=== PATIENT | female | born 1980 ===

== ENCOUNTER 2016-07-16 20:15 | Emergency (ER) | payer SELFPAY ==
[2016-07-16 20:41] VITALS: BP 139/65; PULSE 77; RESP 16; TEMP 98.6; O2SAT 99
--- NOTE | 2016-07-16 21:57 | ED PDOC ---
HPI: CCC, URI, Sore Throat Time Seen by Provider: 07/16/16 21:55 Chief Complaint (Nursing): ENT Problem Chief Complaint (Provider): sore thoart History Per: Patient History/Exam Limitations: no limitations Onset/Duration Of Symptoms: Days (3) Current Symptoms Are (Timing): Still Present Location Of Pain: Throat Associated Symptoms: Fever, Chills, Sore Throat, Sputum. denies: Cough, Neck Pain, Sinus Drainage, Myalgias, Nasal Congestion, Nausea, Vomiting, Diarrhea Past Medical History Reviewed: Historical Data, Nursing Documentation, Vital Signs Vital Signs: Last Vital Signs Temp 98.6 F 07/16/16 20:39 Pulse 77 07/16/16 20:39 Resp 16 07/16/16 20:39 BP 139/65 07/16/16 20:39 Pulse Ox 99 07/16/16 20:39 - Family History Family History: States: No Known Family Hx - Home Medications Home Medications: Ambulatory Orders Medication Instructions Recorded Benzonatate [Tessalon Perles] 100 mg PO BID #10 sgl 07/16/16 Methylprednisolone [Medrol Dose 4 mg PO DAILY #21 mg 07/16/16 Pack (21 tabs)] - Allergies Allergies/Adverse Reactions: Allergies Allergy/AdvReac Type Severity Reaction Status Date / Time No Known Allergies Allergy Verified 07/16/16 20:39 Review of Systems ROS Statement: Except As Marked, All Systems Reviewed And Found Negative Constitutional: Positive for: Fever ENT: Positive for: Throat Pain, Throat Swelling Respiratory: Positive for: Cough Physical Exam - Reviewed Nursing Documentation Reviewed: Yes Vital Signs Reviewed: Yes - Physical Exam Appears: Positive for: Non-toxic, No Acute Distress, Uncomfortable Head Exam: Positive for: ATRAUMATIC, NORMAL INSPECTION, NORMOCEPHALIC Skin: Positive for: Normal Color, Warm, DRY ENT: Positive for: Tonsillar Swelling. Negative for: Pharyngeal Erythema, Tonsillar Exudate Cardiovascular/Chest: Positive for: Regular Rate, Rhythm Respiratory: Positive for: CNT, Normal Breath Sounds Neurologic/Psych: Positive for: Alert, Oriented - ECG O2 Sat by Pulse Oximetry: 99 Medical Decision Making Medical Decision Making: (-) strep test pt dx with pharyngitis d/c on medrol dose pack and tessalon perels Disposition - Clinical Impression Clinical Impression: Acute pharyngitis - Patient ED Disposition Is Patient to be Admitted: No Counseled Patient/Family Regarding: Studies Performed, Diagnosis, Need For Followup, Rx Given - Disposition Disposition: Routine/Home Disposition Time: 22:00 Condition: STABLE Prescriptions: Methylprednisolone [Medrol Dose Pack (21 tabs)] 4 mg PO DAILY #21 mg Benzonatate [Tessalon Perles] 100 mg PO BID #10 sgl Instructions: Pharyngitis (ED) Print Language: BAHAMIAN
== END 2016-07-16 22:14 | disposition home or self-care (01) ==
LOC: H.ER 20:15
DX: J02.9 Acute pharyngitis, unspecified (principal); R50.9 Fever, unspecified